=== PATIENT | male | born 2000 | race Caucasian/White ===

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

== ENCOUNTER 2020-05-13 09:56 | Emergency (ER) | payer SELFPAY ==
[~2020-05-13] VITALS: Ht 165.1 cm; Wt 118.0 kg
[~2020-05-13 09:56] MED LIST changes: -CLIN300C8 PO; +CLIN300C9 PO
[2020-05-13 10:15] VITALS: BP 176/102
--- NOTE | 2020-05-13 10:36 | RAD ---
Study: XR HAND_RIGHT 3 VIEWS Indication: Hand injury. Comparison: None. Findings/ impression: No acute fracture is identified or traumatic malalignment. Maintained joint spaces. Electronically signed by: PRAVEEN ZAZUETA MD (05/13/2020 10:33 AM) [id number]
--- NOTE | 2020-05-13 11:18 | PHYS DOC ---
Past History Past Medical History: Diabetes Past Surgical History: Tonsillectomy Smoking: Cigarettes, Chew Alcohol Use: Occasionally Drug Use: None General Adult EDM: Chief Complaint: HAND PROBLEM HPI: HPI: This is a pleasant 20-year-old male presented emergency department today with a hand injury. He was using a wrench to open up a main water valve when it slipped and he hit his hand into the concrete wall. He injured his fourth pha lanx of his right hand. He is right-hand dominant. He has some swelling without an abrasion. He has pain with extension of the finger. He denies any other injuries. The pain is sharp shooting nonradiating mild and associated with a small amount of swelling. He denies any sensation changes. He denies any muscle weakness. Review of systems negative for wrist pain elbow pain shoulder pain. All other review of systems negative. ED course: 20-year-old gentleman presenting with an injury to his right hand. X-rays obtained which were unremarkable. The patient is able to extend and flex in the emergency department though he has significant amount of pain with extension. We will place the patient in a finger splint and refer him to his PCP for reexamination in a day or 2. If he has continued difficulty except with extension he will be an MRI within the next 5 to 7 days. He is to return for any worsening symptoms or any other concerns. He understands the need for follow-up and the risk of disability if he does not follow-up. Allergies: Allergies: Allergies Coded Allergies Type Severity Reaction Last Updated Verified Penicillins Allergy Unknown 01/09/17 Yes codeine Allergy Unknown 01/09/17 Yes Physical Exam: PE: Constitutional: Well developed, well nourished, no acute distress, non-toxic appearance. [] HENT: Normocephalic, atraumatic, bilateral external ears normal, oropharynx moist, no oral exudates, nose normal. [] Eyes: PERRLA, EOMI, conjunctiva normal, no discharge. [] Neck: Normal range of motion, no tenderness, supple, no stridor. [] Cardiovascular:Heart rate regular rhythm, no murmur [] Lungs & Thorax: Bilateral breath sounds clear to auscultation [] Abdomen: Bowel sounds normal, soft, no tenderness, no masses, no pulsatile masses. [] Skin: Warm, dry, no erythema, no rash. [] Back: No tenderness, no CVA tenderness. [] Extremities: The patient's right hand has tenderness along the fourth phalanx. There is a mild amount of swelling at the proximal interphalangeal joint. No abrasions. No lacerations. 2-second cap refill. Patient is able to flex and extend his finger at the proximal and distal interphalangeal joint when isolated. He has pain with extension. Mild tenderness in the carpals. Nontender in the wrist with normal range of motion of the wrist. The elbow and shoulder are nontender. Normal motor and sensory function of the hand. Neurologic: Alert and oriented X 3, normal motor function, normal sensory f unction, no focal deficits noted. [] Psychologic: Affect normal, judgement normal, mood normal. [] Current Patient Data: Vital Signs: Vital Signs Date Time Temp Pulse Resp B/P (MAP) Pulse Ox O2 Delivery O2 Flow Rate FiO2 05/13/20 10:15 176/102 (126) 05/13/20 09:56 97.9 95 18 96 Room Air EKG: EKG: [] Radiology/Procedures: Radiology/Procedures: [] Heart Score: Risk Factors: Risk Factors: DM, Current or recent (<one month) smoker, HTN, HLP, family history of CAD, obesity. Risk Scores: Score 0 - 3: 2.5% MACE over next 6 weeks - Discharge Home Score 4 - 6: 20.3% MACE over next 6 weeks - Admit for Clinical Observation Score 7 - 10: 72.7% MACE over next 6 weeks - Early Invasive Strategies Course & Med Decision Making: Course & Med Decision Making Pertinent Labs and Imaging studies reviewed. (See chart for details) [] Matthias Disclaimer: Matthias Disclaimer: This electronic medical record was generated, in whole or in part, using a voice recognition dictation system. Departure Departure: Impression: Primary Impression: Hand injury Disposition: 01 DC HOME SELF CARE/HOMELESS Condition: STABLE Referrals: RAZA WOODWARD (PCP) Patient Instructions: Hand Contusion Additional Instructions: EMERGENCY DEPARTMENT GENERAL DISCHARGE INSTRUCTIONS Follow-up with your primary physician in 1 to 2 days. You will need an outpatient MRI of your hand within 4-7 days if you have trouble extending your finger. Return to the emergency department if you have any new or concerning findings. Thank you for coming to [facility] emergency department today and trusting us with you care. We trust that you had a positive experience in our Emergency Department. If you wish to speak to the department management, you may call the Director at [phone]. YOUR FOLLOW UP INSTRUCTIONS ARE FOLLOWS: 1. Do you have a private Doctor? If you do not have a private doctor, please ask for a resource list of physicians or clinics that may be able to assist you with follow up care. 2. If a lab test or culture has been done and does not come back immediately, your results will be reviewed and you will be notified if you need a change in treatment. ADDITIONAL INSTRUCTIONS AND INFORMATION: 1. Your care today has been supervised by a physician who is specially trained in emergency care. Many problems require more than one evaluation for a complete diagnosis and treatment. We recommend that you schedule your follow up appointment as recommended to ensure complete treatment of you illness or injury. If you are unable to obtain follow up care and continue to have a problem, or if your condition worsens, we recommend that you return to the ED. 2. We are not able to safely determine your condition over the phone nor are we able to give sound medical advice over the phone. For these safety reasons, if you call for medical advice we will ask you to come to the ED for further evaluation. 3. If you have any questions regarding these discharge instructions please call the ED at [phone]. SAFETY INFORMATION: In the interest of safety, wellness, and injury prevention; we encourage you to wear your sealbelt, if you smoke; quite smoking, and we encourage family to use a protective helmet for bicycling and other sporting events that present an increased risk for head injury. IF YOUR SYMPTOMS WORSEN OR NEW SYMPTOMS DEVELOP, OR YOU HAVE CONCERNS ABOUT YOUR CONDITION; OR IF YOUR CONDITION WORSENS WHILE YOU ARE WAITING FOR YOUR FOLLOW UP APPOINTMENT; EITHER CONTACT YOUR PRIMARY CARE DOCTOR, THE PHYSICIAN WHOSE NAME AND NUMBER YOU WERE GIVEN, OR RETURN TO THE ED IMMEDIATELY. This condition should be evaluated by your primary care physician and any necessary consulting services for continued management within a few days (1-2) after discharge. Return to the emergency department if you have any new or concerning symptoms including but not limited to fever, chills, nausea, vomiting, intractable pain, any new rashes, chest pain, shortness of breath, uncontrolled bleeding, difficulty breathing, and/or vision loss. ADELA LARA MD May 13, 2020 11:18
[2020-05-13] MEDS ORDERED: IBUPROFEN 400 MG TABLET. PO ONE (11:30)
== END 2020-05-13 11:35 | disposition home or self-care (01) ==
LOC: ER 09:56
DX: S69.81XA Other specified injuries of right wrist, hand and finger(s), initial encounter (principal); R60.0 Localized edema; E11.9 Type 2 diabetes mellitus without complications; F17.210 Nicotine dependence, cigarettes, uncomplicated; Z90.89 Acquired absence of other organs; Z88.0 Allergy status to penicillin; Z88.5 Allergy status to narcotic agent; W22.8XXA Striking against or struck by other objects, initial encounter; Y93.89 Activity, other specified; Y92.89 Other specified places as the place of occurrence of the external cause; Y99.8 Other external cause status
CPT/HCPCS: 73130; 99283

== ENCOUNTER 2021-08-08 11:24 | Emergency (ER) | payer SELFPAY ==
[~2021-08-08] VITALS: Ht 160 cm; Wt 119.0 kg
[~2021-08-08 11:24] MED LIST changes: +CLIN-95 PO; -CLIN300C9 PO
[2021-08-08 11:30] VITALS: BP 160/88
--- NOTE | 2021-08-08 11:44 | PHYS DOC ---
Past History Past Medical History: Diabetes Past Surgical History: Tonsillectomy Smoking: Cigarettes, Chew Alcohol Use: Occasionally Drug Use: None General Adult EDM: Chief Complaint: HEADACHE HPI: HPI: Patient is a 21-year-old male who presents to the emergency department for a headache. Patient reports a right parietal headache started yesterday morning. He rates it 8 out of 10. He has a history of migraine headaches but reports t hat this is worse than any other headache he is ever experienced. He denies any thunderclap headache. He reports that his headache did get better last night but then got worse. He denies photophobia, phonophobia, nausea, vomiting, neck stiffness, fevers Review of Systems: Review of Systems: Constitutional: See HPI Eyes: See HPI HENT: See HPI GI: See HPI Musculoskeletal: See HPI Neurologic: See HPI Current Medications: Current Meds: Current Medications Medications (Trade) Dose Ordered Sig/Lili Start Time Stop Time Status Last Admin Dose Admin Diphenhydramine HCl (Benadryl) 25 mg 1X ONCE 08/08/21 11:45 08/08/21 11:46 UNV Ketorolac Tromethamine (Toradol 30mg Vial) 30 mg 1X ONCE 08/08/21 11:45 08/08/21 11:46 UNV Prochlorperazine Edisylate (Compazine) 10 mg 1X ONCE 08/08/21 11:45 08/08/21 11:46 UNV Sodium Chloride 1,000 ml @ 1,000 mls/hr 1X ONCE 08/08/21 11:45 08/08/21 12:44 UNV Allergies: Allergies: Allergies Coded Allergies Type Severity Reaction Last Updated Verified Penicillins Allergy Unknown 01/09/17 Yes codeine Allergy Unknown 01/09/17 Yes Physical Exam: PE: Constitutional: Well developed, well nourished, no acute distress, non-toxic appearance. [] HENT: Normocephalic, atraumatic, bilateral external ears normal, oropharynx moist, no oral exudates, nose normal. [] Eyes: PERRL, 4 mm bilaterally, no nystagmus, EOMI, conjunctiva normal, no discharge. [] Neck: Normal range of motion, no tenderness, no neutral rigidity supple, no stridor. [] Cardiovascular:Heart rate regular rhythm, no murmur [] Lungs & Thorax: Bilateral breath sounds clear to auscultation [] Abdomen: Bowel sounds normal, soft, no tenderness, no masses, no pulsatile masses. [] Skin: Warm, dry, no erythema, no rash. [] Back: No tenderness, normal range of motion Extremities: No tenderness, no cyanosis, no clubbing, ROM intact, no edema. [] Neurologic: Alert and oriented X 3, normal motor function, normal sensory function, no focal deficits noted, no pronator drift, no limb ataxia. [] Psychologic: Affect normal, judgement normal, mood normal. [] EKG: EKG: [] Radiology/Procedures: Radiology/Procedures: []PROCEDURE: CT HEAD WO CONTRAST EXAMINATION: CT HEAD/BRAIN WO. TECHNIQUE: Noncontrast axial images of the brain were obtained with coronal and sagittal reconstructions. One or more of the following radiation dose reduction techniques was used: automated exposure control, adjustment of mA and/or KV according to patient size, and/or utilization of iterative reconstruction technique. HISTORY: 21 years Male Reason: headache. . FINDINGS: There is no intracranial hemorrhage, edema or mass effect. The brain parenchyma appears unremarkable. Size of the ventricles is appropriate. The visualized portions of the orbits and paranasal sinuses appear unremarkable. IMPRESSION: Unremarkable exam. Electronically signed by: Ra Mcghee MD (08/08/2021 11:58 AM) [id number] DICTATED AND SIGNED BY: RA MCGHEE MD DATE: 08/08/21 1156 CC: RAZA WOODWARD; ELLIE CONTE STEEL WHEEL ENGRAVER ~ Heart Score: C/O Chest Pain: N/A Risk Factors: Risk Factors: DM, Current or recent (<one month) smoker, HTN, HLP, family history of CAD, obesity. Risk Scores: Score 0 - 3: 2.5% MACE over next 6 weeks - Discharge Home Score 4 - 6: 20.3% MACE over next 6 weeks - Admit for Clinical Observation Score 7 - 10: 72.7% MACE over next 6 weeks - Early Invasive Strategies Course & Med Decision Making: Course & Med Decision Making Pertinent Labs and Imaging studies reviewed. (See chart for details) [] Patient resents to the emergency department for a headache. Patient has a history of migraine headaches but reports that this is the worst headache he is ever experienced therefore it CT imaging of his head was performed. Patient treated with migraine cocktail. He has no neck stiffness and has no neutral rigidity, no complaints of fever. CT imaging of head did not show any acute findings. Upon further evaluation of patient, he is sleeping in the ER room. Patient reports that his headache has improved. Patient advised to take Tylenol and ibuprofen at home for his pain and follow-up with his primary care provider. I discussed with patient all findings and diagnostic testing as well as the need to follow-up with PCP for further evaluation and treatment or return to the ER if any new or worsening symptoms. Strict return precautions were also discussed at length. Patient voiced understanding and agreement with the plan. Patient is hemodynamically stable at the time of disposition. Dragon Disclaimer: [email or web address] Disclaimer: This electronic medical record was generated, in whole or in part, using a voice recognition dictation system. Departure Departure: Impression: Primary Impression: Migraine headache Qualified Codes: G43.909 - Migraine, unspecified, not intractable, without status migrainosus Disposition: HOME / SELF CARE / HOMELESS Condition: GOOD Referrals: RAZA WOODWARD (PCP) Patient Instructions: Migraine Headache Additional Instructions: You were seen in the emergency department for a headache which is most likely a migraine. You were given a migraine cocktail which includes Toradol, Compazine, and Benadryl which resolved the headache. Fluids were also given to help with dehydration which is commonly a cause of headache. Team to hydrate at home with water and other fluids and eat normal diet. Please return to the emergency department if you have any vomiting, fever, increased pain that is refractory to treatments at home, vision changes, changes in behavior or mental status, or any focal neurological symptoms including weakness or numbness in the limbs. It is important to follow-up with your doctor tomorrow regarding your ER visit for reexamination. ELLIE CONTE APRN August 08, 2021 11:44
[2021-08-08] MEDS ORDERED: IV NORMAL SALINE 1,000ML 1,000 ML IV ONE (11:45)
[2021-08-08] MEDS ORDERED: KETOROLAC 30 MG/ML VIAL. IVP ONE (11:45)
[2021-08-08] MEDS ORDERED: diphenhydrAMINE 50 MG/ML VIAL IVP ONE (11:45)
[2021-08-08] MEDS ORDERED: PROCHLORPERAZINE 10 MG/2 ML VIAL. IV ONE (11:45)
--- NOTE | 2021-08-08 12:01 | RAD ---
EXAMINATION: CT HEAD/BRAIN WO. TECHNIQUE: Noncontrast axial images of the brain were obtained with coronal and sagittal reconstructi ons. One or more of the following radiation dose reduction techniques was used: automated exposure control , adjustment of mA and/or KV according to patient size, and/or utilization of iterative reconstructio n technique. HISTORY: 21 years Male Reason: headache. . FINDINGS: There is no intracranial hemorrhage, edema or mass effect. The brain parenchyma appears un remarkable. Size of the ventricles is appropriate. The visualized portions of the orbits and paranasal sinuses appear unremarkable. IMPRESSION: Unremarkable exam. Electronically signed by: Gerardo Mcghee MD (08/08/2021 11:58 AM) [id number]
== END 2021-08-08 13:19 | disposition home or self-care (01) ==
LOC: ER 11:24
DX: G43.909 Migraine, unspecified, not intractable, without status migrainosus (principal); E11.9 Type 2 diabetes mellitus without complications; F17.210 Nicotine dependence, cigarettes, uncomplicated; Z88.0 Allergy status to penicillin; Z88.5 Allergy status to narcotic agent
CPT/HCPCS: 70450; 96361; 96374; 96375; 99284; J0780; J1200; J1885; J7030

== ENCOUNTER 2021-08-09 09:13 | Emergency (ER) | payer SELFPAY ==
[~2021-08-09] VITALS: Ht 160 cm; Wt 119.0 kg
[2021-08-09] MEDS ORDERED: PROCHLORPERAZINE 10 MG/2 ML VIAL. IV ONE (09:45)
[2021-08-09] MEDS ORDERED: diphenhydrAMINE 50 MG/ML VIAL IVP ONE (09:45)
[2021-08-09] MEDS ORDERED: KETOROLAC 15 MG/ML VIAL. IVP ONE (09:45)
--- NOTE | 2021-08-09 09:56 | PHYS DOC ---
Past History Past Medical History: Diabetes Past Surgical History: Tonsillectomy Additional Past Surgical Histo: right 5th digit Smoking: Cigarettes, Chew Alcohol Use: None Drug Use: None Adult General Chief Complaint Chief Complaint: HEADACHE HPI HPI Patient presents with continued headache to the right side of his head. Patient was seen at this facility yesterday with this headache. Patient underwent work- up yesterday including CT of the head which was normal. Patient states headaches seem to return overnight. Patient denies any dizziness, no vertigo sensation, no vision or speech changes, no focal weakness. Patient denies any recent fevers or chills Review of Systems Review of Systems Constitutional: Denies fever or chills [] Eyes: Denies change in visual acuity, redness, or eye pain [] HENT: Denies nasal congestion or sore throat [] Respiratory: Denies cough or shortness of breath [] Cardiovascular: No additional information not addressed in HPI [] GI: Denies abdominal pain, nausea, vomiting, bloody stools or diarrhea [] : Denies dysuria or hematuria [] Musculoskeletal: Denies back pain or joint pain [] Integument: Denies rash or skin lesions [] Neurologic: Right-sided headache Endocrine: Denies polyuria or polydipsia [] All other systems were reviewed and found to be within normal limits, except as documented in this note. Current Medications Current Medications Current Medications Medications (Trade) Dose Ordered Sig/Lili Start Time Stop Time Status Last Admin Dose Admin Diphenhydramine HCl (Benadryl) 25 mg 1X ONCE 08/09/21 09:45 08/09/21 09:47 DC Ketorolac Tromethamine (Toradol 15mg Vial) 15 mg 1X ONCE 08/09/21 09:45 08/09/21 09:47 DC Prochlorperazine Edisylate (Compazine) 10 mg 1X ONCE 08/09/21 09:45 08/09/21 09:47 DC Allergies Allergies Allergies Coded Allergies Type Severity Reaction Last Updated Verified Penicillins Allergy Unknown 01/09/17 Yes codeine Allergy Unknown 01/09/17 Yes Physical Exam Physical Exam Constitutional: Well developed, well nourished, no acute distress, non-toxic appearance. [] HENT: Normocephalic, atraumatic, bilateral external ears normal, oropharynx moist, no oral exudates, nose normal. [] Eyes: PERRLA, EOMI, conjunctiva normal, no discharge. [] Neck: Normal range of motion, no tenderness, supple, no stridor. [] Cardiovascular:Heart rate regular rhythm, no murmur [] Lungs & Thorax: Bilateral breath sounds clear to auscultation [] Abdomen: Bowel sounds normal, soft, no tenderness, no masses, no pulsatile masses. [] Skin: Warm, dry, no erythema, no rash. [] Back: No tenderness, no CVA tenderness. [] Extremities: No tenderness, no cyanosis, no clubbing, ROM intact, no edema. [] Neurologic: Alert and oriented X 3, normal motor function, normal sensory function, no focal deficits noted. [] Psychologic: Affect normal, judgement normal, mood normal. [] EKG EKG [] Radiology/Procedures Radiology/Procedures [] Heart Score C/O Chest Pain: N/A Risk Factors: Risk Factors: DM, Current or recent (<one month) smoker, HTN, HLP, family history of CAD, obesity. Risk Scores: Risk Factors: DM, Current or recent (<one month) smoker, HTN, HLP, family history of CAD, obesity. Course & Med Decision Making Course & Med Decision Making Patient was CT head yesterday normal, normal neuro exam at this time in the emergency department. Patient offered IV medication, but states that he was just contacted by his place of employment and he needs to hurry to work. Patient was counseled that he is not able to operate any machinery with medications that we typically use for headache. Patient will be given IM medication, patient with history of migraine headaches as outpatient in the past, and would likely benefit from referral back to neurology as patient formally was on medication for these recurrent migraines. Dragon Disclaimer Dragon Disclaimer This electronic medical record was generated, in whole or in part, using a voice recognition dictation system. Departure Departure: Impression: Primary Impression: Migraine headache Disposition: HOME / SELF CARE / HOMELESS Condition: IMPROVED Referrals: RAZA WOODWARD (PCP) TANIA GAMBINO MD Patient Instructions: Recurrent Migraine Headache Additional Instructions: Return for worsening symptoms or concerns. Contact the neurology clinic for outpatient follow-up. TRESA ALEGRIA MD August 09, 2021 09:56
[2021-08-09] MEDS ORDERED: KETOROLAC 30 MG/ML VIAL. IM ONE (10:00)
[2021-08-09] MEDS ORDERED: MORPHINE SULFATE 4 MG/ML DISP.SYRIN. IM ONE (10:00)
[2021-08-09 10:10] VITALS: BP 161/96
== END 2021-08-09 10:05 | disposition home or self-care (01) ==
LOC: ER 09:13
DX: G43.909 Migraine, unspecified, not intractable, without status migrainosus (principal); E11.9 Type 2 diabetes mellitus without complications; F17.210 Nicotine dependence, cigarettes, uncomplicated; Z88.0 Allergy status to penicillin; Z88.5 Allergy status to narcotic agent
CPT/HCPCS: 96372; 99284; J1885; J2270